=== PATIENT | male | born 1990 | race Caucasian/White ===

== ENCOUNTER 2019-03-07 16:22 | Inpatient (IN) ==
[2019-03-07 17:13] LABS: Appearance Urine Clear (Clear); Bacteria Urine Automated Negative (Negative); Bilirubin Urine Negative (Negative); Blood Urine Negative (Negative); Color Urine Dark Yellow; Glucose Urine UA Negative (Negative); Ketones Urine Negative (Negative); Leukocyte Esterase Urine 1+ (Negative); Nitrite Urine Negative (Negative); Protein Urine Negative (Negative); RBC Urine Automated 0-4 /hpf (0-4); Specific Gravity Urine 1.021 (1.000-1.030); Urobilinogen Urine Negative (Negative); pH Urine 6.5 (4.5-7.5)
[2019-03-07 17:21] LABS: Basophils # (auto) 0.03 K/uL (0-0.2); Basophils % (auto) 0.3 %; Eosinophils # (auto) 0.22 K/uL (0-0.5); Eosinophils % (auto) 2.1 %; Hematocrit (blood only) 41.2 % (42-52); Hemoglobin 13.4 g/dL (14.0-18.0); Immature Granulocytes # (auto) 0.04 K/uL (0.00-0.02); Immature Granulocytes % (auto) 0.4 %; Lymphocytes # (auto) 1.79 K/uL (1.2-3.4); Lymphocytes % (auto) 17.5 %; Mean Corpuscular Hgb Conc 32.5 g/dL (32-36); Mean Corpuscular Volume 87.5 fL (80-100); Monocytes % (auto) 7.8 %; Neutrophils # (auto) 7.37 K/uL (1.4-6.5); Neutrophils % (auto) 71.9 %; Platelet Count 294 K/uL (130-400); RDW Coefficient of Variation 14.6 % (11.5-14.5); RDW Standard Deviation 46.7 fL (36.4-46.3); Red Blood Count 4.71 M/uL (4.7-6.1); White Blood Count 10.25 K/uL (4.8-10.8)
[2019-03-07 17:36] LABS: Amphetamines+Metham, Urine Neg (Neg); Barbiturates, Urine Neg (Neg); Benzodiazepine, Urine Neg (Neg); Cocaine, Urine Neg (Neg); MDMA (Ecstacy), Urine Pos (Neg); Methadone, Urine Neg (Neg); Opiate, Urine Neg (Neg); Phencyclidine, Urine Neg (Neg)
[2019-03-07 17:39] LABS: Albumin Level 3.7 gm/dl (3.4-5.0); BUN Creatinine Ratio 13.3 (10-20); Calcium 9.4 mg/dl (8.5-10.1); Creatinine Clr Calc Pharmacy 247.4 ml/min; Est GFR (African American) 144.4; Est GFR (Non-African American) 124.6; Potassium 3.9 mmol/L (3.5-5.1)
[2019-03-07 17:50] LABS: Acetaminophen < 2 ug/ml (10-30); Bilirubin,Total 0.3 mg/dl (0.2-1); Globulin 3.7 gm/dl (2.5-4.0); Lithium 0.4 mmol/L (0.6-1.2); Salicylate 2.1 mg/dl (2.8-20); Total Protein 7.4 gm/dl (6.4-8.2)
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
--- NOTE | 2019-03-07 20:15 | Emergency Department Note ---
ED Visit Note 2013: sign out from Dr. Davenport. SI. ibarra. medically cleared awaiting psych placement 0040: vital signs stable. Patient accepted to [address] [place] [address] for inpatient psych treatment .
[2019-03-08] MEDS ORDERED: SODIUM CHLORIDE 0.65% NA SOLN 45 ML (OCEAN) PRN (00:06)
[2019-03-08] MEDS ORDERED: ALUMINUM/MAGNESIUM SUSP 30 ML UDC PO PRN (00:06)
[2019-03-08] MEDS ORDERED: BISMUTH SUBSALICYLATE PER ML OMNICELL CHARGE PO PRN (00:06)
[2019-03-08] MEDS ORDERED: ACETAMINOPHEN 325 MG TAB PO PRN (00:06)
[2019-03-08] MEDS ORDERED: MAGNESIUM HYDROXIDE SUSP 30 ML UDC PO PRN (00:06)
[2019-03-08] MEDS ORDERED: clonazePAM 0.5 MG TAB PO PRN (00:09)
[2019-03-08] MEDS: LITHIUM CARBONATE 450 MG TABCR PO SCH ×3 (01:12→21:11)
[2019-03-08] MEDS: PRAZOSIN HCL 1 MG CAP PO SCH ×2 (01:12→21:10)
[2019-03-08] MEDS: TRAZODONE HCL 50 MG TAB PO SCH ×2 (01:12→21:14)
[2019-03-08] MEDS: lamoTRIgine 100 MG TAB PO SCH ×3 (01:12→21:13)
[2019-03-08] MEDS ORDERED: SERTRALINE HCL 50 MG TABLET PO SCH (09:00)
--- NOTE | 2019-03-08 11:41 | History & Physical ---
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 HSZ PRN PRN Reason: Insomnia Stop: 04/07/19 00:05 Ibuprofen (Motrin) 600 mg PO Q6H PRN PRN Reason: pain Stop: 04/07/19 00:14 Lamotrigine (Lamictal) 100 mg PO BID KEYSHA Stop: 04/07/19 00:14 Last Admin: 03/08/19 09:35 Dose: 100 mg Documented by: [place] Carbonate (Eskalith) 450 mg PO BID KEYHSA Stop: 04/07/19 00:14 Last Admin: 03/08/19 09:35 Dose: 450 mg Documented by: Magnesium Hydroxide (Milk Of Magnesia) 30 ml PO DAILY PRN PRN Reason: Heartburn Stop: 04/07/19 00:05 Prazosin HCl (Prazosin Hcl) 5 mg PO HS KEYSHA Stop: 04/07/19 00:14 Last Admin: 03/08/19 01:12 Dose: 5 mg Documented by: Sertraline HCl (Zoloft) 50 mg PO DAILY KEYSHA Stop: 04/07/19 08:59 Last Admin: 03/08/19 09:35 Dose: 50 mg Documented by: Sodium Chloride ([place] Nasal) 1 - 2 sprays NA PRN PRN PRN Reason: Nasal Dryness/Congestion Stop: 04/07/19 00:05 Trazodone HCl (Desyrel) 150 mg PO HS KEYSHA Stop: 04/07/19 00:14 Last Admin: 03/08/19 01:12 Dose: 150 mg Documented by: CPT Code CPT Code Initial Hospital Care: [id number]
[2019-03-08] MEDS: LITHIUM CARBONATE 300 MG TAB PO SCH (21:13)
[2019-03-09] MEDS: LITHIUM CARBONATE 450 MG TABCR PO SCH ×2 (09:10→22:44)
[2019-03-09] MEDS: SERTRALINE HCL 100 MG TABLET PO SCH (09:11)
[2019-03-09] MEDS: lamoTRIgine 100 MG TAB PO SCH ×2 (09:11→22:45)
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
[2019-03-09] MEDS: IBUPROFEN 600 MG TAB PO PRN ×2 (13:51→20:40)
[2019-03-09] MEDS: PRAZOSIN HCL 1 MG CAP PO SCH (22:43)
[2019-03-09] MEDS: TRAZODONE HCL 50 MG TAB PO SCH (22:44)
[2019-03-09] MEDS: LITHIUM CARBONATE 300 MG TAB PO SCH (22:44)
[2019-03-10] MEDS: LITHIUM CARBONATE 450 MG TABCR PO SCH (09:19)
[2019-03-10] MEDS: SERTRALINE HCL 100 MG TABLET PO SCH (09:19)
[2019-03-10] MEDS: lamoTRIgine 100 MG TAB PO SCH (09:19)
[2019-03-10] MEDS: IBUPROFEN 600 MG TAB PO PRN (09:20)
--- NOTE | 2019-03-10 13:14 | Discharge Summary ---
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 Signed Therapist Name of Therapist: Zenaida Arroyo LPC Therapist's Date of Therapist Appointment: 03/18/19 Time of Therapist Appointment: 3pm Therapy Appointment Comment: [address], [address], [place] [address] Therapist Release of Information: Obtained, Reviewed and Signed Facilitator Name of Facilitator: Antonietta Mukherjee Phone Number for Facilitator: [phone] Time of Appointment with Facilitator: Left messages, will need to follow up to get established with leather case finisher. Case Management Appointment Comment: [address] [facility] [place] [address] Facilitator Release of Information: Obtained, Reviewed and Signed Post Discharge Appointments Primary Care Physician Name Of Family Doctor: Does not have one. Smoking Cessation Counseling Tobacco Cessation Medication Prescribed at Discharge: Not Applicable/Non-Smoker Other #1: [facility] Phone Number of Aftercare Appointment: [phone] Time of Aftercare Appointment: Follow up as needed for [facility]. Aftercare Appointment Comment: [address] [place] [address] #2: Name of Aftercare Appointment: [facility] Phone Number of Aftercare Appointment: [phone] Aftercare Appointment Comment: [address], [place] [address] #3: Name of Aftercare Appointment: [facility] Phone Number of Aftercare Appointment: [phone] Aftercare Appointment Comment[facility] [address] [facility] [place] [address] #4: Name of Aftercare Appointment: [facility] Phone Number of Aftercare Appointment: Aftercare Appointment Comment[facility] [address] [facility] [place] [address] Contact Information Discharge Discharge Address: [address] [place], [place] [address] [address] Discharge Plan Discharge Items Patient Disposition: Home - Self-Care Reason For Visit: SI, BIPOLAR DISORDER Discharge Diagnosis: Depression with suicidal ideaion Condition: Fair Discharge Goals: Decrease discomfort, Improve disease control, Improve function, Increase independence, Learn about illness and Therapeutic intervention Activity: Resume your previous activity Non-emergency contact: Primary Care Provider, Psychiatrist and Therapist Call non-emergency contact if: you have any medication questions and your symptoms worsen Follow-up/Referrals: PCP,NO [Primary Care Provider] - Diet: Regular Addtl Provider Instructions: SPECIAL CARE INSTRUCTIONS: 1. Follow through with your scheduled aftercare appointments. If unable to keep an appointment, please call to reschedule. 2. Take your medication only as prescribed. Medication should not be changed or stopped without the approval of your doctor. In the event of worsening symptoms or concerns about side effects, contact your doctor immediately. 3. Utilize new healthy coping skills, anger management skills, and stress management skills learned during your hospitalization. Journal feelings and process them with a support person. Identify stressors or situations that may result in relapse, deterioration or inappropriate behaviors and develop a plan to deal with those issues. 4. If your coping skills are ineffective and you are in crisis, contact your outpatient providers for direction. If unable to reach your providers, please call the CAN HELP LINE AT or go to the closest Emergency Room. 5. Avoid alcohol and un-prescribed drugs. 6. You have been provided with the Mental Health Advance Directives Pamphlet for your review. AFTERCARE APPOINTMENTS: * Please call your insurance company prior to your scheduled appointment to confirm your aftercare providers are covered. Take your insurance information to your appointments. WHO TO CALL AND WHEN: Medical Emergencies: For questions or emergencies related to your hospital stay, please contact the Inpatient Behavioral Health Unit at [phone]. A garde manger is on-call 03/02 for the Behavioral Health Unit for emergencies At any time you feel your situation is an emergency, you may also call 911 immediately. Your Doctors Instructions noted above were prepared by provider Beatriz Banks PA-C. Prescriptions: New methylphenidate HCl 27 mg tablet extended release 24hr 27 mg PO DAILY Qty: 20 RF: 0 sertraline 100 mg Tablet 100 mg PO QAM 15 Days Qty: 15 RF: 0 lamotrigine 100 mg Tablet 100 mg PO QAM 1 Days Qty: 1 RF: 0 lamotrigine 100 mg Tablet 150 mg PO QPM 1 Days Qty: 1.5 RF: 0 lithium carbonate 150 mg capsule 150 mg PO QPM 16 Days Qty: 16 RF: 0 Continued clonazepam [Klonopin] 0.5 mg Tablet 0.5 mg PO Q6H PRN (Reason: Anxiety) RF: 0 trazodone 150 mg Tablet 150 mg PO HS RF: 0 prazosin 5 mg Capsule 5 mg PO HS RF: 0 lamotrigine [Lamictal] 100 mg Tablet 100 mg PO BID RF: 0 lithium carbonate 450 mg Tablet Extended Release 450 mg PO BID RF: 0 Discontinued sertraline [Zoloft] 50 mg Tablet 50 mg PO DAILY RF: 0 methylphenidate HCl [Concerta] 36 mg Tablet Extended Release 24hr 36 mg PO DAILY RF: 0 Stand-Alone Forms: [facility] Discharge Orders: Discharge Order (Routine); Ordered 03/10/19 Ordered By: Beatriz Banks Admission Data Admit Date/Time: 03/08/19 00:06 Attending Provider: Brandon Carrizales Admit Provider: Leesa Jasmine Primary Care Provider: PCP,NO Service: Psychiatry Other Interventions: Discharge Summary Assessment (RN) Last Done: 03/10/19 13:59 PSY Interdisciplinary Discharge Planning Last Done: 03/10/19 12:18 Pending Studies at Discharge: No DC Date/Time DO NOT enter until pt leaves facility: 03/10/19 14:25
== END 2019-03-10 14:25 | disposition home or self-care (01) | DRG 881 ==
LOC: ED 16:22 → 3S 03-08 00:06
DX: F60.3 Borderline personality disorder; F90.9 Attention-deficit hyperactivity disorder, unspecified type; F34.0 Cyclothymic disorder; F43.10 Post-traumatic stress disorder, unspecified; Z88.0 Allergy status to penicillin; F32.9 Major depressive disorder, single episode, unspecified; R45.851 Suicidal ideations; F12.90 Cannabis use, unspecified, uncomplicated; Z59.0 Homelessness

== ENCOUNTER 2025-02-10 15:56 | Inpatient (IN) ==
[2025-02-10 16:39] LABS: Hematocrit (blood only) 42.3 % (42.0-52.0); Hemoglobin 14.0 g/dl (14.0-18.0); Immature Granulocytes # (auto) 0.01 K/uL (0.01-0.20); Immature Granulocytes % (auto) 0.2 %; Mean Corpuscular Hemoglobin 28.6 pg (25.0-34.0); Mean Corpuscular Volume 86.3 fL (80.0-100.0); Platelet Count 183 K/uL (130-400); RDW Standard Deviation 43.3 fL (36.4-46.3); Red Blood Count 4.90 M/uL (4.70-6.10); White Blood Count 4.95 K/ul (4.8-10.8)
[2025-02-10 16:42] LABS: Appearance Urine Clear (Clear); Bacteria Urine Automated None Seen (None Seen); Cast Urine Automated 0-2 /lpf (0-2); Epithelial Cell Urine Auto 0-2 /hpf (0-2); Glucose Urine UA Negative (Negative); RBC Urine Automated 0-2 /hpf (0-2)
[2025-02-10] MEDS: SODIUM CHLORIDE 0.9% 1,000 ML IV ONE (16:58)
[2025-02-10 16:59] LABS: Alanine Aminotransferase 15.0 U/L (7-52); Albumin Globulin Ratio 1.3 (0.9-2); Alkaline Phosphatase 46.0 U/L (34-104); Anion Gap 6.0 (3-11); Bilirubin,Total 0.5 mg/dl (0.2-1.0); Blood Urea Nitrogen 16.0 mg/dl (6-23); Calcium 9.2 mg/dl (8.6-10.3); Carbon Dioxide 26.0 mmol/L (21-32); Chloride 108.0 mmol/L (98-107); Creatine Kinase 212.0 U/L (30-223); Creatinine Clr Calc Pharmacy 221.8 ml/min; Globulin 3.2 gm/dl (2.5-4.0); Glucose 107.0 mg/dl (70-99(Fasting)); Potassium 3.9 mmol/L (3.5-5.1); Sodium 140.0 mmol/L (136-145); Total Protein 7.5 gm/dl (6.0-8.3)
[2025-02-10 17:02] LABS: Acetaminophen < 3 ug/ml (10-30); Salicylate < 3.0 mg/dl (3.0-30)
[2025-02-10 17:12] LABS: Thyroid Stimulating Hormone 0.171 uIu/ml (0.300-4.500)
[2025-02-10 17:20] LABS: Amphetamines+Metham, Urine Neg (Neg); MDMA (Ecstacy), Urine Neg (Neg); Marijuana, Urine Pos (Neg)
[2025-02-10 17:29] LABS: Magnesium 2.1 mg/dl (1.7-2.4)
--- NOTE | 2025-02-10 19:07 | Emergency Department Note ---
History of Present Illness General Chief complaint: Mental Health Evaluation Stated complaint: OVERDOSE Time Seen by Provider: 02/10/25 15:59 History of Present Illness Provider complaint: Mental health evaluation 34-year-old male presents emergency department for mental health evaluation. Patient reports he has been having suicidal ideations and tried to overdose on his Prozac at 1430. Patient reports taking anywhere from 20 to 50 tablets of his 40 mg Prozac. Patient states did not take any other medications today. No drugs or alcohol. Home Medications Medication Instructions Recorded Confirmed Type cariprazine 3 mg capsule 3 mg PO DAILY 02/10/25 02/10/25 History divalproex 500 mg tablet,delayed 500 mg PO BID 02/10/25 02/10/25 History release (Depakote) fluoxetine 40 mg capsule 40 mg PO DAILY 02/10/25 02/10/25 History gabapentin 300 mg capsule 300 mg PO TID 02/10/25 02/10/25 History hydroxyzine HCl 50 mg tablet 50 mg PO TID PRN Anxiety 02/10/25 02/10/25 History methylphenidate HCl 36 mg 36 mg PO QAM 02/10/25 02/10/25 History tablet,extended release 24 hr (Concerta) prazosin 1 mg capsule 3 mg PO HS 02/10/25 02/10/25 History Allergies Allergy/AdvReac Type Severity Reaction Status Date / Time tramadol Allergy Severe Seizure Verified 04/19/24 01:22 PCN Allergy Mild rash Uncoded 04/19/24 01:22 Past Med/Surg History Problem List (Updated 02/10/25 @ 21:09 by Jose Miranda MD) Intentional SSRI (selective serotonin reuptake inhibitor) overdose (Acute) Depression with suicidal ideation (Acute) Cyclothymic disorder Borderline personality disorder Medical History (Updated 02/10/25 @ 21:09 by Jose Miranda MD) Hallucinations Bipolar disorder Anxiety Depression Family History Other No pertinent family history in first degree relatives Social History Smoking Status: Current every day smoker Tobacco Type: E-cigarettes / Vaping Preferred Language: Occitan Communication Ability: Effective Wellness Rn Required: No Beliefs That Will Affect Care: None Feels Safe at Home: Yes Gender Identity: Male Assistive Devices: Glasses Physical Exam Vital Signs Vital Signs - 24 hr 02/10/25 15:46 02/10/25 17:09 02/10/25 18:00 Temperature 36.9 C Temperature Source Oral Pulse Rate 76 64 Pulse Rate [Apical] 59 L Respiratory Rate 18 18 Respiratory Effort / Characteristics Non-Labored Spontaneous Non-Labored Spontaneous Respiratory Depth Normal Normal Respiratory Pattern Regular Blood Pressure 132/90 Blood Pressure [Right Arm] 132/91 Blood Pressure Mean 104 Blood Pressure Mean [Right Arm] 104 Blood Pressure Position [Right Arm] Pulse Oximetry 98 98 Oxygen Delivery Method Room Air Room Air Sepsis Recent Fever Within 48 Hours No Sepsis New/Unexplained Change in Mental Status N/A Sepsis Action Taken by Nursing No Action Required 02/10/25 19:29 02/10/25 20:54 Temperature Temperature Source Pulse Rate Pulse Rate [Apical] 62 64 Respiratory Rate 18 18 Respiratory Effort / Characteristics Non-Labored Spontaneous Non-Labored Spontaneous Respiratory Depth Normal Normal Respiratory Pattern Regular Regular Blood Pressure Blood Pressure [Right Arm] 120/83 123/86 Blood Pressure Mean Blood Pressure Mean [Right Arm] 95 98 Blood Pressure Position [Right Arm] Lying Lying Pulse Oximetry 97 98 Oxygen Delivery Method Room Air Room Air Sepsis Recent Fever Within 48 Hours Sepsis New/Unexplained Change in Mental Status Sepsis Action Taken by Nursing Physical Exam GENERAL: oriented to person, place, and time. appears well-developed and well- nourished. HENT: Exam performed. - Head: Normocephalic and atraumatic. EYES: Conjunctivae and EOM are normal. Right eye exhibits no discharge. Left eye exhibits no discharge. No scleral icterus. NECK: Normal range of motion. Neck supple. No JVD present. CV: Normal rate, regular rhythm, normal heart sounds and intact distal pulses. There is no peripheral edema. Palpable radial pulses bue. PULM/CHEST: Effort normal and breath sounds normal. No respiratory distress. No stridor. no wheezes. no rales. NEURO: Motor and sensation grossly intact. SKIN: Skin is warm and dry. He is not diaphoretic. PSYCH: Suicidal ideation Course Course 1559: The patient was evaluated in room A7. A complete history and physical exam was performed Cardiac monitoring: An order was placed for continuous cardiac monitoring. The monitor shows a rate of 70 with sinus rhythm interpreted by me 6210: Spoke with Poison Control Center who recommends rechecking EKG in 4 hours and observation for 6 to 8 hours since the ingestion time. 2108: Vital signs stable. Patient hemodynamically stable no seizure-like activity in the emergency department. Patient signed out to Dr. Calderon. Once patient is medically cleared he can be evaluated by psychiatric therapeutic case manager for inpatient mission for depression and suicide attempt. Administered Medications Discontinued Medications Sodium Chloride (Nss) 1,000 mls @ 999 mls/hr IV .Q1H1M ONE Stop: 02/10/25 16:59 Last Infusion: 02/10/25 17:59 Dose: Infused Documented By: Admin: 02/10/25 16:58 Dose: 999 mls/hr Documented By: [facility] Medical Decision Making Laboratory Data Attestation: I reviewed the patient's lab results. 02/10/25 16:25 02/10/25 16:25 Lab Results 02/10/25 Range/Units 16:25 WBC 4.95 (4.8-10.8) K/ul RBC 4.90 (4.70-6.10) M/uL Hgb 14.0 (14.0-18.0) g/dl Hct 42.3 (42.0-52.0) % MCV 86.3 (80.0-100.0) fL MCH 28.6 (25.0-34.0) pg MCHC 33.1 (32.0-36.0) g/dL RDW Std Deviation 43.3 (36.4-46.3) fL RDW Coeff of Madeline 13.7 (11.5-14.5) % Plt Count 183 (130-400) K/uL MPV 9.9 (9.4-12.4) fL Immature Gran % (Auto) 0.2 % Neut % (Auto) 51.3 % Lymph % (Auto) 36.2 % [place] % (Auto) 10.3 % Eos % (Auto) 1.4 % Baso % (Auto) 0.6 % Neut # (Auto) 2.54 (1.40-6.50) K/uL Lymph # (Auto) 1.79 (1.20-3.40) K/uL [place] # (Auto) 0.51 (0.11-0.59) K/uL Eos # (Auto) 0.07 (0.00-0.50) K/uL Baso # (Auto) 0.03 (0.00-0.20) K/uL Immature Gran # (Auto) 0.01 (0.01-0.20) K/uL Sodium 140 (136-145) mmol/L Potassium 3.9 (3.5-5.1) mmol/L Chloride 108 H (98-107) mmol/L Carbon Dioxide 26 (21-32) mmol/L Anion Gap 6 (3-11) BUN 16 (6-23) mg/dl Creatinine 0.70 (0.6-1.4) mg/dl Est Cr Clr Drug Dosing 221.8 ml/min eGFR 125.55 BUN/Creatinine Ratio 22.9 H (10-20) Glucose 107 H (70-99(Fasting)) mg/dl Calcium 9.2 (8.6-10.3) mg/dl Magnesium 2.1 (1.7-2.4) mg/dl Total Bilirubin 0.5 (0.2-1.0) mg/dl AST 22 (13-39) U/L ALT 15 (7-52) U/L Alkaline Phosphatase 46 (34-104) U/L Total Creatine Kinase 212 (30-223) U/L Total Protein 7.5 (6.0-8.3) gm/dl Albumin 4.3 (3.4-5.0) gm/dl Globulin 3.2 (2.5-4.0) gm/dl Albumin/Globulin Ratio 1.3 (0.9-2) TSH 0.171 L (0.300-4.500) uIu/ml Free T4 1.01 (0.61-1.60) ng/dl Urine Color Yellow Urine Appearance Clear (Clear) Urine pH >= 9.0 H (4.5-7.5) Ur Specific [place] 1.031 H (1.000-1.030) Urine Protein Trace H (Negative) Urine Glucose (UA) Negative (Negative) Urine Ketones Trace H (Negative) Urine Blood Negative (Negative) Urine Nitrite Negative (Negative) Urine Bilirubin Negative (Negative) Urine Urobilinogen Negative (Negative) Ur Leukocyte Esterase Trace H (Negative) Urine WBC (Auto) 6-10 H (0-5) /hpf Urine RBC (Auto) 0-2 (0-2) /hpf U Hyaline Cast (Auto) 0-2 (0-2) /lpf U Epithel Cells (Auto) 0-2 (0-2) /hpf Urine Bacteria (Auto) None Seen (None Seen) Urine Comment Salicylates < 3.0 L (3.0-30) mg/dl Urine Opiates Screen Neg (Neg) Ur Methadone, Qual Neg (Neg) Urine Fentanyl Screen Neg (Neg) Acetaminophen < 3 L (10-30) ug/ml Urine Barbiturates Neg (Neg) Ur Phencyclidine (PCP) Neg (Neg) U Amphetamin/Meth Scrn Neg (Neg) MDMA (Ecstasy) Screen Neg (Neg) U Benzodiazepines Scrn Neg (Neg) Ur Cocaine Metabolite Neg (Neg) U Marijuana (THC) Screen Pos H (Neg) Ethyl Alcohol mg/dL < 10.0 (<10.0) mg/dl SARS-CoV-2, RNA, NAAT NEGATIVE (NEGATIVE) ECG Data Attestation: I personally reviewed and interpreted this ECG as follows: Rate (beats per minute): 71 Rhythm: + normal sinus ECG Intervals/blocks: + Normal NC and + Normal QT-c ECG ST segments: + Normal ST segments Comparison ECG Date: from (April 2024) Change: no significant change Additional Comments: QRS 122 EKG #2 at 2029: Sinus rhythm with rate of 63. NC 180 QRS [address] elevation or ST depression. No significant change in the EKG from the one done earlier today. [facility] Narrative 1559: The patient was evaluated in room A7. A complete history and physical exam was performed Cardiac monitoring: An order was placed for continuous cardiac monitoring. The monitor shows a rate of 70 with sinus rhythm interpreted by me 1650: Spoke with Poison Control Center who recommends rechecking EKG in 4 hours and observation for 6 to 8 hours since the ingestion time. 2107: Vital signs stable. Patient hemodynamically stable no seizure-like activity in the emergency department. Patient signed out to Dr. Calderon. Once patient is medically cleared he can be evaluated by psychiatric therapeutic case manager for inpatient mission for depression and suicide attempt. Impression & Plan Depression with suicidal ideation, Intentional SSRI (selective serotonin reuptake inhibitor) overdose Discharge Plan Visit Data Chief Complaint: Mental Health Evaluation Stated Complaint: OVERDOSE ED Provider: Jose Miranda Discharge Problem: Depression with suicidal ideation, Intentional SSRI (selective serotonin reuptake inhibitor) overdose Patient Disposition: Still a Patient Condition: Fair Forms Stand Alone Forms: My [facility], Suicide Prevention Resources Prescriptions Prescriptions: No Action fluoxetine [Prozac] 40 mg Capsule 40 mg PO DAILY prazosin 1 mg Capsule 3 mg PO HS hydroxyzine HCl 50 mg Tablet 50 mg PO TID PRN (Reason: Anxiety) divalproex [Depakote] 500 mg Tablet,Delayed Release (Dr/Ec) 500 mg PO BID gabapentin 300 mg Capsule 300 mg PO TID methylphenidate HCl [Concerta] 36 mg Tablet Extended Release 24hr 36 mg PO QAM cariprazine 3 mg Capsule 3 mg PO DAILY Referrals Referrals: Tracey Mckeon DO [Primary Care Provider] -
[2025-02-11] MEDS ORDERED: BISMUTH SUBSALICYLATE 262 MG CHEW PO PRN (00:44)
[2025-02-11] MEDS ORDERED: SODIUM CHLORIDE 0.65% NA SOLN 45 ML (OCEAN) PRN (00:44)
[2025-02-11] MEDS ORDERED: ACETAMINOPHEN 325 MG TAB PO PRN (00:44)
[2025-02-11] MEDS ORDERED: MAGNESIUM HYDROXIDE SUSP 30 ML UDC PO PRN (00:44)
[2025-02-11] MEDS ORDERED: ALUMINUM/MAGNESIUM SUSP 30 ML UDC PO PRN (00:44)
--- NOTE | 2025-02-11 02:28 | Emergency Department Note ---
ED Visit Note Patient was signed out to me by Dr. Miranda pending psychiatric bed availability. Patient is on a 201 voluntary commitment after polysubstance overdose and attempted suicide today. Patient was medically cleared at 2230. Patient has had repeat EKGs. Patient has remained hemodynamically stable. [facility] Patient transported without issue. .
[2025-02-11] MEDS: GABAPENTIN 300 MG CAP PO SCH (08:14)
[2025-02-11] MEDS: DIVALPROEX DELAY RELEASE 500 MG TAB PO SCH (08:14)
[2025-02-11] MEDS: CARIPRAZINE HCL 3 MG CAP PO SCH (08:14)
[2025-02-11] MEDS: NICOTINE 14 MG/24 HR PATCH TD SCH (08:14)
[2025-02-11] MEDS: REMOVE NICODERM PATCH SCH (08:25)
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
[2025-02-11] MEDS ORDERED: LORazepam 1 MG TAB PO PRN (13:28)
[2025-02-11] MEDS: LORazepam 0.5 MG TAB PO ONE (13:35)
--- NOTE | 2025-02-11 19:53 | Electrocardiogram Report ---
Test Reason : Blood Pressure : */* mmHG Vent. Rate : 63 BPM Atrial Rate : 63 BPM P-R Int : 180 ms QRS Dur : 120 ms QT Int : 432 ms P-R-T Axes : 46 -43 18 degrees QTcB Int : 442 ms Normal sinus rhythm Left axis deviation Low voltage QRS Non-specific intra-ventricular conduction delay Abnormal ECG When compared with ECG of 10-Feb-2025 16:33, No significant change was found Confirmed by Hardik Rojas ([id number]) on 02/11/2025 7:53:39 PM Referred By: REFERRED SELF Confirmed By: Hardik Rojas
--- NOTE | 2025-02-11 19:53 | Electrocardiogram Report ---
Test Reason : Blood Pressure : */* mmHG Vent. Rate : 71 BPM Atrial Rate : 71 BPM P-R Int : 192 ms QRS Dur : 122 ms QT Int : 402 ms P-R-T Axes : -4 -33 16 degrees QTcB Int : 436 ms Normal sinus rhythm Left axis deviation Non-specific intra-ventricular conduction delay Poor R wave progression, consider anterior [place] vs. lead placement vs. LVH Abnormal ECG When compared with ECG of 18-Apr-2024 19:16, Criteria for Septal infarct are no longer Present Confirmed by Hardik Rojas ([id number]) on 02/11/2025 7:53:09 PM Referred By: REFERRED SELF Confirmed By: Hardik Rojas
[2025-02-11] MEDS: PRAZOSIN HCL 1 MG CAP PO SCH (20:32)
[2025-02-11] MEDS: LORazepam 1 MG TAB PO SCH (20:32)
[2025-02-12 07:50] LABS: Cholesterol 186.0 mg/dl (0-200); HDL Cholesterol 45.0 mg/dl; Triglycerides 100.0 mg/dl (0-150)
[2025-02-12 08:03] LABS: Thyroid Stimulating Hormone 0.232 uIu/ml (0.300-4.500)
[2025-02-12 09:05] LABS: Hemoglobin A1C 5.2 % (4.5-5.6)
[2025-02-12] MEDS: CHOLECALCIFEROL 125 MCG (5,000 UNITS) TAB PO SCH (10:20)
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
[2025-02-14] MEDS: METHYLPHENIDATE HCL 5 MG TABLET PO SCH (12:15)
[2025-02-14 12:41] LABS: Marijuana Quant, GCMS Urine 639 ng/mL (<5)
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
== END 2025-02-15 13:02 | disposition home or self-care (01) | DRG 918 ==
LOC: ED 15:56 → 3S 02-11 00:04